=== PATIENT | male | born 1985 | race Caucasian/White ===

== ENCOUNTER 2018-10-10 10:11 | Emergency (ER) | payer SELFPAY ==
--- NOTE | 2018-10-10 10:45 | ED ---
GI/ HPI - HPI Summary HPI Summary: 33 year old M referred from [facility] complains of right testicular pain described as mild discomfort like a bruise since 10/06/18. The patient rates the pain 1/10 in severity. Symptoms aggravated by manipulation. Symptoms alleviated by nothing. Patient denies dysuria, abdominal pain, left testicular pain. Patient has never had testicular pain before. Patient has no hx testicular pain. Patient has hx migraines for which he takes Excedrin as needed. Vital signs while in room: HR 98 bpm, BP 140/100, O2 sat 97 % - History of Current Complaint Chief Complaint: EDUrogenitalProblems Time Seen by Provider: 10/10/18 10:18 Stated Complaint: POSS TESTICULAR TORSION PER PT Hx Obtained From: Patient Onset/Duration: Started Days Ago - 10/06/18, Still Present Timing: Constant Severity: Mild Current Severity: Mild Pain Intensity: 1 Associated Signs and Symptoms: Positive: Negative - dysuria, abdominal pain, left testicular pain Aggravating Factor(s): Nothing Alleviating Factor(s): Nothing - Allergy/Home Medications Allergies/Adverse Reactions: Allergies Allergy/AdvReac Type Severity Reaction Status Date / Time No Known Allergies Allergy Verified 10/10/18 10:14 PMH/Surg Hx/FS Hx/Imm Hx Previously Healthy: No Endocrine/Hematology History: Denies: Hx Diabetes Cardiovascular History: Denies: Hx Hypertension Respiratory History: Reports: Hx Asthma Sensory History: Reports: Hx Contacts or Glasses Opthamlomology History: Reports: Hx Contacts or Glasses Neurological History: Reports: Hx Migraine - Surgical History Surgery Procedure, Year, and Place: Appendectomy when he was 16 y/o. Cyst removed from wrist when he was 5 y/o. Clouding removed from cornea Infectious Disease History: No Infectious Disease History: Denies: Traveled Outside the [place] in Last 30 Days - Family History Known Family History: Positive: Other - Parents are alive and well Negative: Cardiac Disease, Hypertension, Diabetes - Social History Alcohol Use: Weekly Hx Substance Use: Yes Substance Use Type: Reports: Marijuana Hx Tobacco Use: Yes Smoking Status (MU): Light Every Day Tobacco Smoker Review of Systems Negative: Abdominal Pain Positive: other - right testicular pain; NEGATIVE: left testicular pain. Negative: dysuria All Other Systems Reviewed And Are Negative: Yes Physical Exam - Summary Physical Exam Summary: Appearance: Ill-appearing, moderate pain distress, well-nourished, patient has pink welsh Skin: Warm, color reflects adequate perfusion, dry Head: Normal Head/Face inspection, atraumatic Eyes: Conjunctiva clear ENT: Normal inspection Neck: Supple, no nodes, no JVD Respiratory: Lungs clear, normal breath sounds, no respiratory distress Cardio: RRR, No murmur, pulses normal, brisk capillary refill Abdomen: Soft, nontender Bowel sounds: Present Musculoskeletal: Strength Intact/ROM intact, no calf tenderness, no edema. Psychological: Normal Neuro: Alert, muscle tone normal, no focal deficit Genital exam chaperoned by gabriele Suero: Bilateral distended testicles, no swelling, no redness, discomfort when palpating the right testicle, no masses, uncircumcised penis, shaved public hair Triage Information Reviewed: Yes Vital Signs On Initial Exam: Initial Vitals Temp Pulse Resp BP Pulse Ox 96.6 F 98 16 140/100 97 10/10/18 10:15 10/10/18 10:15 10/10/18 10:15 10/10/18 10:15 10/10/18 10:15 Vital Signs Reviewed: Yes Diagnostics - Vital Signs Vital Signs Temp Pulse Resp BP Pulse Ox 10/10/18 10:15 96.6 F 98 16 140/100 97 - Laboratory Result Diagrams: 10/10/18 10:47 10/10/18 10:47 Lab Statement: Any lab studies that have been ordered have been reviewed, and results considered in the medical decision making process. - Ultrasound No standard instances Ultrasound Interpretation Completed By: Radiologist Summary of Ultrasound Findings: 1. NO TESTICULAR PARENCHYMAL MASS. 2. NO SONOGRAPHIC FEATURES OF TORSION. PLEASE NOTE THAT PARTIAL OR INTERMITTENT TORSION MAY BE SONOGRAPHICALLY NORMAL. ED physician has reviewed this report. Re-Evaluation - Re-Evaluation First Eval Re-Evaluation Time: 11:49 Change: Unchanged Comment: Patient was given copy of his US. Patient states pain is still 0-1. He declines pain medication. He states he can work today and agrees to have definite follow up as directed. Second Eval Re-Evaluation Time: 11:58 Change: Unchanged Comment: Discussed patient's lack of insurance. Told him social work will assist with insurance. Pain remains 0-1. He still agrees to have definite follow up. GIGU Course/Dx - Course Course Of Treatment: Patient medications reviewed this visit. Nurses notes reviewed. High blood pressure noted. UAs show trace leukocyte esterases. Will await urine culture. Bloodwork shows elevated hematocrit 54. US Testicular shows 1. NO TESTICULAR PARENCHYMAL MASS. 2. NO SONOGRAPHIC FEATURES OF TORSION. PLEASE NOTE THAT PARTIAL OR INTERMITTENT TORSION MAY BE SONOGRAPHICALLY NORMAL. Dr. Mckeon, urology, recommends treating patient like epididymitis. He recommends doxycycline for 10 days. He recommends telling patient to call the office for an appointment. Patient was given copy of his US results. Patient will be discharged home with prescription for doxycycline and follow up from Dr. Mckeon, urology, in the next 1-2 days. Patient was instructed to return to ED for new or worsening symptoms. Patient understands and is agreeable to discharge plan. He agrees to have definite follow up. - Diagnoses Provider Diagnoses: Testicular pain, Epididymitis, Polycythemia, Elevated blood pressure reading without diagnosis of hypertension - Physician Notifications Discussed Care Of Patient With: Larry Mckeon Time Discussed With Above Provider: 11:55 Instructed by Provider To: Other - Dr. Mckeon, urology, recommends treating patient like epididymitis. He recommends doxycycline for 10 days. He recommends telling patient to call the office for an appointment. Discharge - Sign-Out/Discharge Documenting (check all that apply): Patient Departure - Discharge Patient Received Moderate/Deep Sedation with Procedure: No - Discharge Plan Condition: Stable Disposition: HOME Prescriptions: DOXYcycline CAP(*) [DOXYcycline 100MG CAP(*)] 100 mg PO BID #20 cap Patient Education Materials: Epididymitis (ED), Testicle Pain (ED) Referrals: Larry Mckeon MD [Medical Doctor] - 1 Day Additional Instructions: Have definite follow up with Dr. Mckeon in the next 1-2 days. Take the antibiotic as directed. Return to the ER if you have any new or worsening symptoms. - Attestation Statements Document Initiated by Scribe: Yes Documenting Scribe: Elizabeth Shaw Provider For Whom Scribe is Documenting (Include Credential): Inessa Callahan MD Scribe Attestation: Elizabeth Linda, scribed for Inessa Callahan MD on 10/10/18 at 1454.
[2018-10-10 10:59] LABS: ABS Basophils 0.1 10^3/ul (0-0.2); ABS Eosinophils 0.2 10^3/ul (0-0.6); ABS Lymphocytes 2.4 10^3/ul (1.0-4.8); ABS Monocytes 0.6 10^3/ul (0-0.8); ABS Neutrophils 4.7 10^3/ul (1.5-7.7); ABS Nucleated RBC 0.1 10^3/ul; Eosinophil % 2.8 %; Hematocrit 54 % (36-46); Hemoglobin 18.3 g/dL (14.0-18.0); Lymphocyte % 30.3 %; Mean Corpuscular HGB Conc 34 g/dL (31-36); Mean Corpuscular Hemoglobin 30 pg (27-31); Mean Corpuscular Volume 87 fL (80-94); Mean Platelet Volume 7.3 fL (7.4-10.4); Nucleated Red Blood Cells % 0.7; Platelet Count 288 10^3/uL (150-450); Red Cell Distribution Width 13 % (10.5-15)
[2018-10-10 11:10] LABS: Albumin 4.6 g/dL (3.2-5.2); Albumin/Globulin Ratio 1.8 (1-3); BUN/Creatinine Ratio 10.9 (8-20); C Reactive Protein 1.09 mg/L (<8.01); Calcium 9.4 mg/dL (8.6-10.3); EGFR African American 93.9 (>60); EGFR Non-African American 77.6 (>60); Globulin 2.5 g/dL (2-4); Potassium 4.2 mmol/L (3.5-5.0); Total Protein 7.1 g/dL (6.4-8.9)
[2018-10-10 11:11] LABS: Urine Appearance Clear; Urine Bacteria Absent (Absent); Urine Bilirubin Negative (Negative); Urine Blood Negative (Negative); Urine Color Yellow; Urine Glucose Negative (Negative); Urine Ketones Negative (Negative); Urine Nitrite Negative (Negative); Urine Protein Negative (Negative); Urine Red Blood Cell Trace(0-2/hpf) (Absent); Urine Specific Gravity 1.016 (1.010-1.030); Urine Urobilinogen Negative (Negative); Urine White Blood Cell 1+(6-10/hpf) (Absent)
[2018-10-10 12:06] VITALS: BP 136/90
== END 2018-10-10 12:04 | disposition home or self-care (01) ==
LOC: ED 10:11
DX: N50.811 Right testicular pain (principal); N45.1 Epididymitis; D75.1 Secondary polycythemia; R03.0 Elevated blood-pressure reading, without diagnosis of hypertension; J45.909 Unspecified asthma, uncomplicated; F17.210 Nicotine dependence, cigarettes, uncomplicated
CPT/HCPCS: 36415; 76870; 80053; 81003; 81015; 83605; 85025; 86140; 87086; 99282